=== PATIENT | male | born 1935 | race Two or more races ===

== ENCOUNTER 2021-08-06 13:54 | Inpatient (IN) | payer MEDICARE, MEDICAID ==
[~2021-08-06] VITALS: Ht 172.7 cm; Wt 69.2 kg
[2021-08-06 15:31] LABS: Albumin 3.2 g/dL (3.4-5.0); Calcium 8.5 mg/dL (8.5-10.1); Potassium 4.4 mmol/L (3.5-5.1)
[2021-08-06 15:34] LABS: Basophils # (auto) 0 10 ^3/uL (0-0.2); Basophils % (auto) 0.5 % (0.0-2.0); Eosinophils # (auto) 0 10 ^3/uL (0-0.8); Hematocrit 47.5 % (41.0-53.0); Hemoglobin 16.1 g/dL (13.5-17.5); Lymphocytes # (auto) 0.5 10 ^3/uL (0.4-5.4); Lymphocytes % (auto) 9.6 % (10.0-50.0); Mean Corpuscular Hemoglobin 28.9 pg (28.0-32.0); Mean Corpuscular Hgb Conc. 33.9 g/dL (32.0-36.0); Mean Corpuscular Volume 85.4 fL (80.0-100.0); Monocytes # (auto) 0.8 10 ^3/uL (0-1.3); Monocytes % (auto) 13.3 % (0.0-12.0); Neutrophils # (auto) 4.3 10 ^3/uL (1.6-8.6); Neutrophils % (auto) 76.6 % (37.0-80.0); Nucleated Red Blood Cells % 0.1 %; Red Blood Cells 5.55 10^6/uL (4.5-5.90); Red Cell Distribution Width 13.7 % (11.8-14.3); White Blood Cell 5.6 10^3/uL (4.4-10.8)
[2021-08-06 15:39] LABS: BUN/Creatinine Ratio 21.9; Bilirubin, Total 0.7 mg/dL (0.2-1.0); Total Protein 8.1 g/dL (6.4-8.2)
[2021-08-07] MEDS ORDERED: SODIUM CHLORIDE 0.9% 1,000 ML IV ONE (01:00)
[2021-08-07 01:59] LABS: INR 1.02 (0.9-1.15); Partial Thromboplastin Time 30.8 sec (23.6-33.0)
[2021-08-07 03:20] LABS: Urine Bacteria NONE SEEN /hpf (None Seen); Urine Blood 2+ /uL (Negative); Urine Hyaline Cast MOD /lpf (0 - 2); Urine Specific Gravity 1.022 (1.001-1.035); Urine WBC 7 /hpf (0 - 3)
[2021-08-07] MEDS ORDERED: LABETALOL HCL 5 MG/ML 4ML SYRINGE IV ONE (11:30)
[2021-08-07] MEDS ORDERED: cefTRIAXone 1GM/50ML D5W 50 ML IV ONE (11:45)
[2021-08-07] MEDS ORDERED: LACTATED RINGER'S 2,050 ML IV ONE (11:45)
[2021-08-07] MEDS ORDERED: ASPirin 81 mg TAB PO ONE (12:15)
[2021-08-07 12:27] LABS: INR 1.03 (0.9-1.15); Partial Thromboplastin Time 33.4 sec (23.6-33.0)
[2021-08-07] MEDS ORDERED: ONDANSETRON HCL 4 MG/2 ML VIAL IV PRN (14:30)
[2021-08-07] MEDS ORDERED: HEPARIN SODIUM (PORCINE) 5000 UNITS/ML 1ML VIAL IV ONE (14:30)
[2021-08-07] MEDS ORDERED: MORPHINE SULFATE INJECTION 2 MG/ML SYRG IV PRN (14:30)
[2021-08-07] MEDS ORDERED: NITROGLYCERIN 0.4 MG SL TAB SL PRN (14:30)
[2021-08-07] MEDS: HEPARIN DRIP/D5W 100UNITS/ML 250 ML IV SCH (15:43)
[2021-08-07] MEDS ORDERED: hydrALAZINE HCL 20 MG/ML VL IV PRN (15:45)
[2021-08-07] MEDS ORDERED: HCTZ 25 MG TAB PO PRN (16:15)
[2021-08-07] MEDS ORDERED: NIFEdipine ER 30 MG TAB PO ONE (16:15)
[2021-08-07] MEDS ORDERED: cloNIDine HCL 0.1 MG TAB PO PRN (17:45)
[2021-08-07 21:30] VITALS: BP 165/88
[2021-08-07 21:51] LABS: INR 1.04 (0.9-1.15)
[2021-08-07 21:53] LABS: Partial Thromboplastin Time 93.9 sec (23.6-33.0)
[2021-08-07 22:00] VITALS: BP 165/88
[2021-08-07 22:56] LABS: Basophils # (auto) 0 10 ^3/uL (0-0.2); Basophils % (auto) 0.3 % (0.0-2.0); Eosinophils # (auto) 0 10 ^3/uL (0-0.8); Eosinophils % (auto) 0.1 % (0.0-7.0); Hematocrit 43.3 % (41.0-53.0); Hemoglobin 14.6 g/dL (13.5-17.5); Lymphocytes # (auto) 0.9 10 ^3/uL (0.4-5.4); Lymphocytes % (auto) 14.5 % (10.0-50.0); Mean Corpuscular Hemoglobin 28.6 pg (28.0-32.0); Mean Corpuscular Hgb Conc. 33.7 g/dL (32.0-36.0); Monocytes # (auto) 0.6 10 ^3/uL (0-1.3); Monocytes % (auto) 9.2 % (0.0-12.0); Neutrophils # (auto) 4.9 10 ^3/uL (1.6-8.6); Neutrophils % (auto) 75.9 % (37.0-80.0); Nucleated Red Blood Cells % 0.2 %; Red Cell Distribution Width 13.3 % (11.8-14.3); White Blood Cell 6.4 10^3/uL (4.4-10.8)
[2021-08-08 02:18] LABS: INR 1.05 (0.9-1.15); Partial Thromboplastin Time 67.3 sec (23.6-33.0)
[2021-08-08 05:00] VITALS: BP 144/62
[2021-08-08 05:58] LABS: Basophils # (auto) 0 10 ^3/uL (0-0.2); Basophils % (auto) 0.4 % (0.0-2.0); Eosinophils # (auto) 0 10 ^3/uL (0-0.8); Eosinophils % (auto) 0.1 % (0.0-7.0); Hematocrit 41.9 % (41.0-53.0); Hemoglobin 14.2 g/dL (13.5-17.5); Lymphocytes # (auto) 0.8 10 ^3/uL (0.4-5.4); Lymphocytes % (auto) 12.4 % (10.0-50.0); Mean Corpuscular Hemoglobin 29.1 pg (28.0-32.0); Mean Corpuscular Hgb Conc. 33.9 g/dL (32.0-36.0); Mean Corpuscular Volume 85.8 fL (80.0-100.0); Monocytes # (auto) 0.4 10 ^3/uL (0-1.3); Monocytes % (auto) 7.1 % (0.0-12.0); Neutrophils # (auto) 4.9 10 ^3/uL (1.6-8.6); Nucleated Red Blood Cells % 0.1 %; Red Blood Cells 4.89 10^6/uL (4.5-5.90); Red Cell Distribution Width 13.4 % (11.8-14.3); White Blood Cell 6.2 10^3/uL (4.4-10.8)
[2021-08-08 06:19] LABS: Albumin 2.2 g/dL (3.4-5.0); BUN/Creatinine Ratio 25.5; Calcium 7.6 mg/dL (8.5-10.1); Potassium 4.5 mmol/L (3.5-5.1)
[2021-08-08 06:22] LABS: Bilirubin, Total 0.6 mg/dL (0.2-1.0); Total Protein 5.4 g/dL (6.4-8.2)
[2021-08-08 09:00] VITALS: BP 118/72
[2021-08-08 09:06] LABS: INR 1.05 (0.9-1.15); Partial Thromboplastin Time 63.4 sec (23.6-33.0)
[2021-08-08] MEDS: NIFEdipine ER 30 MG TAB PO SCH (10:00)
[2021-08-08] MEDS: METOPROLOL SUCCINATE XL 50 MG TAB PO SCH (10:00)
[2021-08-08] MEDS: HEPARIN DRIP/D5W 100UNITS/ML 250 ML IV SCH (14:30)
[2021-08-08 15:12] LABS: INR 1.05 (0.9-1.15); Partial Thromboplastin Time 56.9 sec (23.6-33.0)
[2021-08-08] MEDS ORDERED: DEXTROSE (50%) 50ML SYRG IV PRN (16:30)
[2021-08-08] MEDS ORDERED: cefTRIAXone 1GM/50ML D5W 50 ML IV ONE (16:30)
[2021-08-08] MEDS ORDERED: CHOLECALCIFEROL (VITD3) 2,000 UNIT CAP/TAB PO ONE (16:30)
[2021-08-08] MEDS ORDERED: cloNIDine HCL 0.1 MG TAB PO PRN (16:30)
[2021-08-08] MEDS: Ensure HIGH Protein Chocolate 8oz Bottle PO SCH (18:34)
[2021-08-08] MEDS: SODIUM CHLORIDE 0.9% 1,000 ML IV SCH (18:34)
[2021-08-08] MEDS: ACCU-CHEK COMFORT CURVE STRIP VI SCH (18:35)
[2021-08-08] MEDS: InsuLIN REG 1unit/0.01ml Soln (100units/ml) SC SCH (18:41)
[2021-08-08] MEDS ORDERED: METF-371 PO (19:57)
[2021-08-08] MEDS ORDERED: VERA1TAB24 PO (19:58)
[2021-08-08] MEDS ORDERED: ATO40T PO (19:59)
[2021-08-08 22:00] VITALS: BP 147/77
[2021-08-09] MEDS: ACCU-CHEK COMFORT CURVE STRIP VI SCH ×4 (00:16→18:00)
[2021-08-09] MEDS: InsuLIN REG 1unit/0.01ml Soln (100units/ml) SC SCH ×4 (00:22→18:00)
[2021-08-09 05:00] VITALS: BP 130/64
[2021-08-09 07:52] LABS: BUN/Creatinine Ratio 29.8; Calcium 7.5 mg/dL (8.5-10.1)
[2021-08-09] MEDS: Ensure HIGH Protein Chocolate 8oz Bottle PO SCH ×3 (08:00→18:00)
[2021-08-09 09:00] VITALS: BP 148/72
[2021-08-09] MEDS ORDERED: cefTRIAXone 1GM/50ML D5W 50 ML IV SCH (09:00)
[2021-08-09] MEDS: SODIUM CHLORIDE 0.9% 1,000 ML IV SCH (09:10)
[2021-08-09] MEDS: NIFEdipine ER 30 MG TAB PO SCH (10:00)
[2021-08-09] MEDS: CHOLECALCIFEROL (VITD3) 2,000 UNIT CAP/TAB PO SCH (10:00)
[2021-08-09] MEDS: METOPROLOL SUCCINATE XL 50 MG TAB PO SCH (10:00)
[2021-08-09 13:00] VITALS: BP 145/72
[2021-08-09] MEDS: ACETAMINOPHEN 500 MG TAB PO PRN (16:46)
[2021-08-09 17:00] VITALS: BP 153/65
[2021-08-09] MEDS: TAMSULOSIN HYDROCHLORIDE 0.4 MG CAP PO SCH (18:00)
[2021-08-09] MEDS: PIPERACILLIN-TAZOB 3.375GM 100 ML IV SCH (18:15)
[2021-08-09 22:00] VITALS: BP 119/63
[2021-08-10] MEDS: ACCU-CHEK COMFORT CURVE STRIP VI SCH ×5 (00:06→23:59)
[2021-08-10] MEDS: InsuLIN REG 1unit/0.01ml Soln (100units/ml) SC SCH ×4 (00:06→17:47)
[2021-08-10] MEDS: PIPERACILLIN-TAZOB 3.375GM 100 ML IV SCH ×3 (00:06→17:00)
[2021-08-10] MEDS: ACETAMINOPHEN 500 MG TAB PO PRN (00:36)
[2021-08-10] MEDS: SODIUM CHLORIDE 0.9% 1,000 ML IV SCH ×2 (01:50→14:45)
[2021-08-10 05:00] VITALS: BP 114/56
[2021-08-10 07:04] LABS: BUN/Creatinine Ratio 26.2; Calcium 7.7 mg/dL (8.5-10.1); Potassium 4.2 mmol/L (3.5-5.1)
[2021-08-10] MEDS: Ensure HIGH Protein Chocolate 8oz Bottle PO SCH ×3 (08:00→18:00)
[2021-08-10 09:00] VITALS: BP 135/63
[2021-08-10] MEDS: NIFEdipine ER 30 MG TAB PO SCH (10:00)
[2021-08-10] MEDS: METOPROLOL SUCCINATE XL 50 MG TAB PO SCH (10:00)
[2021-08-10] MEDS: CHOLECALCIFEROL (VITD3) 2,000 UNIT CAP/TAB PO SCH (10:00)
[2021-08-10 13:00] VITALS: BP 123/58
[2021-08-10 16:56] VITALS: BP 136/65
[2021-08-10] MEDS: TAMSULOSIN HYDROCHLORIDE 0.4 MG CAP PO SCH (18:00)
[2021-08-10 20:00] VITALS: BP 132/67
[2021-08-10 22:00] VITALS: BP 132/67
[2021-08-11] MEDS: InsuLIN REG 1unit/0.01ml Soln (100units/ml) SC SCH ×5 (00:01→23:54)
[2021-08-11] MEDS: PIPERACILLIN-TAZOB 3.375GM 100 ML IV SCH ×3 (01:06→18:09)
[2021-08-11] MEDS: SODIUM CHLORIDE 0.9% 1,000 ML IV SCH ×3 (01:06→18:25)
[2021-08-11 05:00] VITALS: BP 129/66
[2021-08-11] MEDS: ACCU-CHEK COMFORT CURVE STRIP VI SCH ×4 (05:47→23:53)
[2021-08-11 05:57] LABS: Basophils # (auto) 0 10 ^3/uL (0-0.2); Basophils % (auto) 0.3 % (0.0-2.0); Eosinophils # (auto) 0 10 ^3/uL (0-0.8); Eosinophils % (auto) 0.1 % (0.0-7.0); Hematocrit 34.9 % (41.0-53.0); Hemoglobin 11.6 g/dL (13.5-17.5); Lymphocytes # (auto) 0.7 10 ^3/uL (0.4-5.4); Mean Corpuscular Hemoglobin 28.3 pg (28.0-32.0); Mean Corpuscular Hgb Conc. 33.2 g/dL (32.0-36.0); Mean Corpuscular Volume 85.4 fL (80.0-100.0); Monocytes # (auto) 0.8 10 ^3/uL (0-1.3); Monocytes % (auto) 6.9 % (0.0-12.0); Neutrophils # (auto) 10.2 10 ^3/uL (1.6-8.6); Neutrophils % (auto) 86.7 % (37.0-80.0); Nucleated Red Blood Cells % 0.1 %; Red Blood Cells 4.08 10^6/uL (4.5-5.90); Red Cell Distribution Width 13.2 % (11.8-14.3); White Blood Cell 11.8 10^3/uL (4.4-10.8)
[2021-08-11 06:18] LABS: Potassium 4.8 mmol/L (3.5-5.1)
[2021-08-11 06:24] LABS: Albumin 1.6 g/dL (3.4-5.0); BUN/Creatinine Ratio 29.9; Bilirubin, Total 0.3 mg/dL (0.2-1.0); Calcium 7.4 mg/dL (8.5-10.1); Total Protein 4.8 g/dL (6.4-8.2)
[2021-08-11] MEDS: Ensure HIGH Protein Chocolate 8oz Bottle PO SCH ×3 (08:00→18:09)
[2021-08-11 09:00] VITALS: BP 123/65
[2021-08-11] MEDS: NIFEdipine ER 30 MG TAB PO SCH (11:02)
[2021-08-11] MEDS: METOPROLOL SUCCINATE XL 50 MG TAB PO SCH (11:03)
[2021-08-11] MEDS: CHOLECALCIFEROL (VITD3) 2,000 UNIT CAP/TAB PO SCH (11:03)
[2021-08-11 13:00] VITALS: BP 112/65
[2021-08-11] MEDS ORDERED: FUROSEMIDE 100 MG/10ML VIAL IV ONE (15:15)
[2021-08-11 17:00] VITALS: BP 122/74
[2021-08-11] MEDS: TAMSULOSIN HYDROCHLORIDE 0.4 MG CAP PO SCH (18:09)
[2021-08-11 22:00] VITALS: BP 126/67
[2021-08-12] MEDS: PIPERACILLIN-TAZOB 3.375GM 100 ML IV SCH ×3 (00:52→17:39)
[2021-08-12 05:05] VITALS: BP 122/60
[2021-08-12] MEDS: ACCU-CHEK COMFORT CURVE STRIP VI SCH ×4 (05:41→23:44)
[2021-08-12] MEDS: InsuLIN REG 1unit/0.01ml Soln (100units/ml) SC SCH ×4 (05:45→23:52)
[2021-08-12] MEDS: SODIUM CHLORIDE 0.9% 1,000 ML IV SCH ×2 (05:46→12:32)
[2021-08-12 07:37] LABS: Basophils # (auto) 0 10 ^3/uL (0-0.2); Basophils % (auto) 0.2 % (0.0-2.0); Eosinophils # (auto) 0 10 ^3/uL (0-0.8); Eosinophils % (auto) 0.5 % (0.0-7.0); Hematocrit 32.4 % (41.0-53.0); Hemoglobin 10.9 g/dL (13.5-17.5); Lymphocytes # (auto) 0.9 10 ^3/uL (0.4-5.4); Lymphocytes % (auto) 9.1 % (10.0-50.0); Mean Corpuscular Hemoglobin 28.7 pg (28.0-32.0); Mean Corpuscular Hgb Conc. 33.5 g/dL (32.0-36.0); Mean Corpuscular Volume 85.6 fL (80.0-100.0); Monocytes # (auto) 0.7 10 ^3/uL (0-1.3); Monocytes % (auto) 7.6 % (0.0-12.0); Neutrophils % (auto) 82.6 % (37.0-80.0); Nucleated Red Blood Cells % 0.2 %; Red Blood Cells 3.78 10^6/uL (4.5-5.90); Red Cell Distribution Width 13.4 % (11.8-14.3); White Blood Cell 9.7 10^3/uL (4.4-10.8)
[2021-08-12] MEDS: Ensure HIGH Protein Chocolate 8oz Bottle PO SCH ×3 (08:00→17:39)
[2021-08-12 09:00] VITALS: BP 120/62
[2021-08-12] MEDS: METOPROLOL SUCCINATE XL 50 MG TAB PO SCH (10:00)
[2021-08-12] MEDS: NIFEdipine ER 30 MG TAB PO SCH (10:00)
[2021-08-12 11:06] LABS: BUN/Creatinine Ratio 25.5; Calcium 7.4 mg/dL (8.5-10.1); Potassium 4.4 mmol/L (3.5-5.1)
[2021-08-12] MEDS: CHOLECALCIFEROL (VITD3) 2,000 UNIT CAP/TAB PO SCH (11:08)
[2021-08-12] MEDS: FUROSEMIDE 40 MG/4 ML VIAL IV SCH (12:34)
[2021-08-12 13:00] VITALS: BP 126/66
[2021-08-12 16:58] VITALS: BP 143/71
[2021-08-12] MEDS: TAMSULOSIN HYDROCHLORIDE 0.4 MG CAP PO SCH (17:39)
[2021-08-12 22:00] VITALS: BP 131/64
[2021-08-13] MEDS: PIPERACILLIN-TAZOB 3.375GM 100 ML IV SCH ×3 (01:02→17:17)
[2021-08-13] MEDS: SODIUM CHLORIDE 0.9% 1,000 ML IV SCH ×2 (04:53→21:40)
[2021-08-13 05:00] VITALS: BP 120/81
[2021-08-13] MEDS: ACCU-CHEK COMFORT CURVE STRIP VI SCH ×3 (05:55→17:18)
[2021-08-13] MEDS: InsuLIN REG 1unit/0.01ml Soln (100units/ml) SC SCH ×3 (05:59→17:29)
[2021-08-13 06:21] LABS: BUN/Creatinine Ratio 25.5; Calcium 8.2 mg/dL (8.5-10.1); Potassium 3.8 mmol/L (3.5-5.1)
[2021-08-13] MEDS: Ensure HIGH Protein Chocolate 8oz Bottle PO SCH ×3 (08:00→17:17)
[2021-08-13] MEDS: CHOLECALCIFEROL (VITD3) 2,000 UNIT CAP/TAB PO SCH (10:00)
[2021-08-13] MEDS: METOPROLOL SUCCINATE XL 50 MG TAB PO SCH (10:00)
[2021-08-13] MEDS: NIFEdipine ER 30 MG TAB PO SCH (10:00)
[2021-08-13] MEDS: FUROSEMIDE 40 MG/4 ML VIAL IV SCH (10:15)
[2021-08-13 10:27] VITALS: BP 140/76
[2021-08-13 17:04] VITALS: BP 138/79
[2021-08-13] MEDS: TAMSULOSIN HYDROCHLORIDE 0.4 MG CAP PO SCH (17:18)
[2021-08-13 22:00] VITALS: BP 140/72
[2021-08-13] MEDS: METOPROLOL TARTRATE 25 MG TAB PO SCH (22:37)
[2021-08-14] MEDS: PIPERACILLIN-TAZOB 3.375GM 100 ML IV SCH ×3 (00:29→17:11)
[2021-08-14] MEDS: ACCU-CHEK COMFORT CURVE STRIP VI SCH ×4 (00:29→17:11)
[2021-08-14] MEDS: InsuLIN REG 1unit/0.01ml Soln (100units/ml) SC SCH ×4 (00:43→17:11)
[2021-08-14 07:33] LABS: Calcium 8.3 mg/dL (8.5-10.1); Potassium 4.1 mmol/L (3.5-5.1)
[2021-08-14 09:00] VITALS: BP 150/80
[2021-08-14] MEDS: Ensure HIGH Protein Chocolate 8oz Bottle PO SCH ×3 (09:37→17:12)
[2021-08-14] MEDS: FUROSEMIDE 40 MG/4 ML VIAL IV SCH (09:38)
[2021-08-14] MEDS: METOPROLOL TARTRATE 25 MG TAB PO SCH ×2 (09:39→22:10)
[2021-08-14] MEDS: CHOLECALCIFEROL (VITD3) 2,000 UNIT CAP/TAB PO SCH (09:39)
[2021-08-14] MEDS ORDERED: amLODIPine BESYLATE 5 MG TAB PO SCH (10:00)
[2021-08-14 13:05] VITALS: BP 158/80
[2021-08-14 17:00] VITALS: BP 149/80
[2021-08-14] MEDS: TAMSULOSIN HYDROCHLORIDE 0.4 MG CAP PO SCH (17:12)
[2021-08-14] MEDS: SODIUM CHLORIDE 0.9% 1,000 ML IV SCH (17:13)
[2021-08-15] MEDS: ACCU-CHEK COMFORT CURVE STRIP VI SCH (00:39)
[2021-08-15] MEDS: InsuLIN REG 1unit/0.01ml Soln (100units/ml) SC SCH (00:47)
== END 2021-08-15 01:22 | disposition hospice, home (50) | DRG 177 ==
LOC: EDBD 13:54 → ER 13:54 → TELE 08-07 14:26 → TELE-EAST 08-07 21:05 → EAST 08-10 04:23
PROVIDERS: ADMIT Internal Medicine; ATTEND Internal Medicine
DX: U07.1 COVID-19 (principal); N17.0 Acute kidney failure with tubular necrosis; G92.8 Other toxic encephalopathy; J12.82 Pneumonia due to coronavirus disease 2019; N39.0 Urinary tract infection, site not specified; I16.1 Hypertensive emergency; N18.30 Chronic kidney disease, stage 3 unspecified; F02.80 Dementia in other diseases classified elsewhere, unspecified severity, without behavioral disturbance, psychotic disturbance, mood disturbance, and anxiety; E11.22 Type 2 diabetes mellitus with diabetic chronic kidney disease; R53.81 Other malaise; R31.9 Hematuria, unspecified; I12.9 Hypertensive chronic kidney disease with stage 1 through stage 4 chronic kidney disease, or unspecified chronic kidney disease; Z51.5 Encounter for palliative care
CPT/HCPCS: 36415; 70450; 71045; 76775; 80048; 80053; 81001; 82306; 82550; 82607; 82728; 82962; 83036; 83605; 83615; 83880; 84443; 84484; 85025; 85610; 85730; 87040; 87077; 87186; 87426; 93005; 93306; 96365; 96375; 97110; 97116; 97530; G0378; J0696; J1815; J2405; J2543; J3490